=== PATIENT | male | born 1975 ===

== ENCOUNTER 2021-04-14 08:35 | Outpatient (REF) | payer OTHER, SELFPAY ==
[2021-04-14 10:02] LABS: COVID-19 Test Negative (Negative); IDNOW Serial# 55D5AD1C
== END 2021-04-14 08:36 | disposition home or self-care (01) ==
LOC: HO.LAB 08:35
PROVIDERS: Visit Provider Internal Medicine
DX: Z20.822 Contact with and (suspected) exposure to COVID-19 (principal)
CPT/HCPCS: 87635; C9803